=== PATIENT | female | born 1970 | race Caucasian/White ===

== ENCOUNTER 2018-03-23 15:50 | Emergency (ER) | payer SELFPAY ==
[2018-03-23 17:15] LABS: Influenza A Molecular NEGATIVE (Negative); Influenza B Molecular NEGATIVE (Negative)
--- NOTE | 2018-03-23 18:27 | UC ---
FLU HPI - HPI Summary HPI Summary: 47-year-old female presents with 5-6 day history of fatigue, body aches, nasal congestion, chest tightness, mild shortness of breath, and a nonproductive cough. Patient smokes half to three-quarter pack of cigarettes a day. Denies fever, chills, ear pain, sore throat, chest pain, palpitations, abdominal pain, nausea, vomiting, or diarrhea. - History of Current Complaint Chief Complaint: UCGeneralIllness Stated Complaint: CHEST CONGESTION,COUGH,BODY ACHES Time Seen by Provider: 03/23/18 18:13 Hx Obtained From: Patient Hx Last Menstrual Period: 03/06/18 Pain Intensity: 7 - Allergy/Home Medications Allergies/Adverse Reactions: Allergies Allergy/AdvReac Type Severity Reaction Status Date / Time Penicillins Allergy Intermediate Rash Verified 03/23/18 16:25 PMH/Surg Hx/FS Hx/Imm Hx Previously Healthy: Yes - Denies significant PMH - Surgical History Surgical History: Yes Surgery Procedure, Year, and Place: tubal - Family History Known Family History: Positive: Non-Contributory - Social History Occupation: Employed Full-time Lives: With Family Alcohol Use: None Substance Use Type: None Smoking Status (MU): Heavy Every Day Tobacco Smoker Type: Cigarettes Amount Used/How Often: 10-15 cigs daily Review of Systems All Other Systems Reviewed And Are Negative: Yes Constitutional: Positive: Fatigue. Negative: Fever, Chills Eyes: Negative: Drainage, Eye Redness ENT: Positive: Nasal Discharge, Sinus Congestion. Negative: Sore Throat, Ear Ache, Sinus Pain/Tenderness Respiratory: Positive: Shortness Of Breath, Cough Cardiovascular: Negative: Palpitations, Chest Pain Gastrointestinal: Negative: Abdominal Pain, Vomiting, Diarrhea, Nausea Genitourinary: Positive: Negative Musculoskeletal: Positive: Negative Neurological: Positive: Negative Is Patient Immunocompromised?: No Physical Exam - Summary Physical Exam Summary: GENERAL APPEARANCE: Well developed, well nourished, alert and cooperative, and appears to be in no acute distress. EYES: Conjunctiva clear. No discharge. Vision is grossly intact. EARS: External auditory canals and tympanic membranes clear, hearing grossly intact. NOSE: Mild nasal congestion. THROAT: Pharynx normal. No tonsilar inflammation, swelling, exudate, or lesions. NECK: Neck supple, non-tender without lymphadenopathy. CARDIAC: Normal S1 and S2. No S3, S4 or murmurs. Rhythm is regular. There is no peripheral edema, cyanosis or pallor. Extremities are warm and well perfused. Capillary refill is less than 2 seconds. LUNGS: Diminished breath sounds. Harsh bronchospastic cough. ABDOMEN: Positive bowel sounds. Soft, nondistended, nontender. No guarding or rebound. No masses or hepatosplenomegally. MUSKULOSKELETAL: ROM intact to all extremities. No joint erythema or tenderness. Normal muscular development. Normal gait. SKIN: Skin normal color, texture and turgor with no lesions or eruptions. Triage Information Reviewed: Yes Vital Signs: Initial Vital Signs Temp 99 F 03/23/18 16:20 Pulse 109 03/23/18 16:20 Resp 18 03/23/18 16:20 BP 127/84 03/23/18 16:20 Pulse Ox 96 03/23/18 16:20 Vital Signs Reviewed: Yes Diagnostics - Laboratory Diagnostic Studies Completed/Ordered: Rapid flu negative Re-Evaluation - Re-Evaluation First Eval Re-Evaluation Time: 19:10 Change: Improved Comment: Post-nebulizer treatment patient reports breathing easier and cough feels more loose and productive. Bilateral breath sounds with improved air exchange. Bilateral expiratory wheezes noted. Flu Course/Dx - Course Course Of Treatment: 47-year-old female presents with 5-6 day history of fatigue , body aches, nasal congestion, chest tightness, mild shortness of breath, and a nonproductive cough. Patient smokes half to three-quarter pack of cigarettes a day. Denies fever, chills, ear pain, sore throat, chest pain, palpitations, abdominal pain, nausea, vomiting, or diarrhea. Afebrile. Vital signs stable. Exam revealed an alert adult female in no acute distress with mild nasal congestion, bronchospastic cough, and diminished bilateral breath sounds. Rapid flu negative. She was given a DuoNeb and reported improvement in her breathing and loosening of her cough. Post nebulizer treatment she had improved air exchange upon auscultation as well as some expiratory wheezes. Going to treat her for an acute bronchitis with a course of azithromycin and start her on prednisone 40 mg daily 5 days and provided her with an albuterol inhaler to use for the reactive airway disease. I have also provided her with a prescription for Tessalon Perles to use as needed for cough. She is to return here or follow up with her primary care provider in 3 days for recheck or symptoms. Anticipatory guidance and warning symptoms were given to the patient. She verbalizes understanding and agrees with plan of care. - Differential Dx/Diagnosis Differential Diagnosis/HQI/PQRI: Bronchitis, Influenza, Pneumonia, Upper Respiratory Infection Provider Diagnosis: Acute bronchitis, Reactive airway disease Discharge - Sign-Out/Discharge Documenting (check all that apply): Patient Departure All imaging exams completed and their final reports reviewed: No Studies - Discharge Plan Condition: Stable Disposition: HOME Prescriptions: Albuterol HFA INHALER* [Ventolin HFA Inhaler*] 2 puff INH Q4H PRN #1 mdi PRN Reason: Sob/Wheezing Azithromyxin KALINA (NF) [Z-Kalina (Zithromax) 250 mg tabs #6] 2 tab PO .TODAY, THEN 1 DAILY #6 tab Benzonatate CAP* [Tessalon 100 MG CAP*] 100 mg PO TID PRN #30 cap PRN Reason: Cough predniSONE [Prednisone 20 MG TAB] 40 mg PO DAILY #10 tablet Patient Education Materials: Upper Respiratory Infection (ED) Referrals: No Primary Care Phys,NOPCP [Primary Care Provider] - Additional Instructions: Your rapid flu test in the clinic today was negative. Your history and exam are consistent with an upper respiratory infection causing inflammation in your airways. We will start you on an antibiotic and treat the inflammation with some steroids and an inhaler. Start azithromycin 2 tabs today then 1 tab a day for next 4 days. Take prednisone 40 mg daily for 5 days. Use the albuterol inhaler 2 puffs every 4-6 hours as needed for shortness of breath or wheezing. May take Tessalon Perles 1 cap every 8 hours as needed for cough. Drink plenty of fluids to avoid dehydration especially if you are running any fever. Take over the counter acetaminophen (Tylenol) or ibuprofen (Advil, Motrin) according to directions as needed for pain or fever. Return here or follow up with your primary care provider in 3 days for recheck of your symptoms. Seek immediate medical attention in the emergency room if you have fever greater than 100.5 F despite taking acetaminophen or ibuprofen, have chest pain , difficulty breathing, are unable to swallow, or have any worsening of symptoms. - Billing Disposition and Condition Condition: STABLE Disposition: Home - Attestation Statements Provider Attestation: I was available for consult. This patient was seen by the [facility]. The patient was not presented to, seen by, or examined by me. EK
[2018-03-23] MEDS ORDERED: Albuterol/Ipratropium NEB.SOL* Albuterol 2.5 MG/Ipratropium 0.5 MG 3 ML INH ONE (18:31)
[2018-03-23 19:13] VITALS: BP 136/83
== END 2018-03-23 19:31 | disposition home or self-care (01) ==
LOC: UCCORT 15:50
DX: J45.909 Unspecified asthma, uncomplicated (principal); R52 Pain, unspecified; R53.83 Other fatigue; R09.89 Other specified symptoms and signs involving the circulatory and respiratory systems; F17.210 Nicotine dependence, cigarettes, uncomplicated; Z88.0 Allergy status to penicillin; R09.81 Nasal congestion
CPT/HCPCS: 99202; A9270-GY; G0463